=== PATIENT | male | born 1985 | race Two or more races ===

== ENCOUNTER 2017-04-07 15:56 | Emergency (ER) | payer MEDICAID, OTHER ==
[~2017-04-07] VITALS: Ht 170.2 cm; Wt 84.4 kg
[2017-04-07 16:06] VITALS: BP 110/60
== END 2017-04-07 17:09 | disposition home or self-care (01) ==
LOC: ER 16:02
DX: F41.9 Anxiety disorder, unspecified (principal); M25.562 Pain in left knee; R07.9 Chest pain, unspecified; M54.9 Dorsalgia, unspecified; F17.210 Nicotine dependence, cigarettes, uncomplicated; F12.10 Cannabis abuse, uncomplicated
CPT/HCPCS: 93005

== ENCOUNTER 2019-01-28 07:35 | Emergency (ER) | payer MEDICAID, OTHER ==
[~2019-01-28] VITALS: Ht 167.6 cm; Wt 71.7 kg
[2019-01-28 07:47] VITALS: BP 108/90
== END 2019-01-28 07:56 | disposition home or self-care (01) ==
LOC: ER 07:35
DX: J03.90 Acute tonsillitis, unspecified (principal); F17.210 Nicotine dependence, cigarettes, uncomplicated; F12.10 Cannabis abuse, uncomplicated

== ENCOUNTER 2021-04-19 16:17 | Emergency (ER) | payer OTHER ==
[~2021-04-19] VITALS: Ht 167.6 cm; Wt 68.0 kg
[2021-04-19] MEDS ORDERED: cefTRIAXone SOD 1,000 MG VL IM ONE (16:45)
[2021-04-19] MEDS ORDERED: IBUPROFEN 800 MG TAB PO ONE (16:45)
[2021-04-19 17:04] VITALS: BP 105/59
== END 2021-04-19 18:35 | disposition home or self-care (01) ==
LOC: ER 16:17
DX: S93.401A Sprain of unspecified ligament of right ankle, initial encounter (principal); F17.210 Nicotine dependence, cigarettes, uncomplicated; F12.10 Cannabis abuse, uncomplicated; F15.10 Other stimulant abuse, uncomplicated; W57.XXXA Bitten or stung by nonvenomous insect and other nonvenomous arthropods, initial encounter; Y93.01 Activity, walking, marching and hiking; Y92.89 Other specified places as the place of occurrence of the external cause; Y99.8 Other external cause status
CPT/HCPCS: 73610; 96372; 99283; J0696

== ENCOUNTER 2022-05-23 09:00 | Emergency (ER) | payer OTHER ==
[~2022-05-23] VITALS: Ht 167.6 cm; Wt 82.0 kg
[2022-05-23 09:25] VITALS: BP 158/89
[2022-05-23] MEDS ORDERED: TETANUS-DIPTH-ACEL PERTUSSIS 0.5ML SYR Tdap IM ONE (10:00)
[2022-05-23] MEDS ORDERED: diphenhdrAMINE HCL 50 MG/1 ML VL IM ONE (10:15)
== END 2022-05-23 10:42 | disposition home or self-care (01) ==
LOC: EDBD 09:00 → ER 09:02
DX: S61.011A Laceration without foreign body of right thumb without damage to nail, initial encounter (principal); F41.9 Anxiety disorder, unspecified; F17.210 Nicotine dependence, cigarettes, uncomplicated; W25.XXXA Contact with sharp glass, initial encounter; Y93.89 Activity, other specified; Y92.89 Other specified places as the place of occurrence of the external cause; Y99.8 Other external cause status
CPT/HCPCS: 12001; 90471; 90715; 96372; 99284; J1200